=== PATIENT | male | born 1980 | race Caucasian/White ===

== ENCOUNTER → 2017-05-08 | Outpatient (CLI) | payer OTHER ==
[~2017-05-08] MED LIST: NOMEDS *
[2017-05-08 21:13] LABS: BUN 14 mg/dL (7-18)
[2017-05-08 21:42] LABS: GFR (ESTIMATED) 85 ML/MIN (>60)
== END ==
LOC: LAB 17:03
PROVIDERS: Internal Medicine Cardiovascular Disease
DX: I10 Essential (primary) hypertension (principal)

== ENCOUNTER 2017-07-21 19:56 | Emergency (ER) | payer OTHER ==
[~2017-07-21] VITALS: Ht 185.4 cm; Wt 97.5 kg
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
[2017-07-21 20:40] VITALS: BP 152/100
--- NOTE | 2017-07-22 09:58 | RADIOLOGY REPORT PS360 ---
ANKLE-RT-3 VIEWS COMPARISON: None HISTORY: Twisting injury, right ankle pain TECHNIQUE: AP lateral and oblique views FINDINGS: The medial and lateral malleolus appear intact with no fracture seen. Ankle mortise is normal. There is no significant soft tissue swelling. IMPRESSION: Negative right ankle
== END 2017-07-21 20:42 | disposition home or self-care (01) ==
LOC: UTC 19:56 → ER 20:01
DX: S93.401A Sprain of unspecified ligament of right ankle, initial encounter (principal); W17.2XXA Fall into hole, initial encounter; Y93.9 Activity, unspecified; Y92.9 Unspecified place or not applicable